=== PATIENT | male | born 1995 | race Caucasian/White ===

== ENCOUNTER 2021-07-04 06:03 | Emergency (ER) | payer SELFPAY ==
[~2021-07-04] VITALS: Ht 170.2 cm; Wt 73.0 kg
[2021-07-04] MEDS ORDERED: KETOROLAC 30MG/ML VIAL IV STA (08:06)
[2021-07-04] MEDS ORDERED: BACITRACIN ZINC OINT UDPKT TOP ONE (08:15)
[2021-07-04] MEDS ORDERED: LIDOCAINE HCL/EPINEPHRINE 1%-EPI 1:100,000 20 ML VIAL INFIL ONE (08:15)
[2021-07-04] MEDS ORDERED: SODIUM CHLORIDE 0.9% 1,000 ML IV ONE (08:15)
[2021-07-04] MEDS ORDERED: TETANUS, DIPHTHERIA, PERTUSSIS VAC/PF 0.5ML (>7YR OLD) IM ONE (08:15)
[2021-07-04 09:47] LABS: HEMATOCRIT. 41.3 % (42.0-52.0); HEMOGLOBIN. 13.8 g/dL (14.0-18.0); MEAN CORPUSCULAR HEMOGLOBIN 28.7 pg (28.0-32.0); MEAN CORPUSCULAR VOLUME 85.9 fL (80.0-94.0); MEAN PLATELET VOLUME 7.3 fl (7.4-10.4); PLATELET 223 x1000/uL (130-400); RED BLOOD CELL COUNT 4.81 mill/uL (4.7-6.1); RED CELL DISTRIBUTION WIDTH 13.6 % (11.6-14.6)
[2021-07-04 09:54] LABS: CHLORIDE 105 mEq/L (98-107)
[2021-07-04 09:57] LABS: ETHANOL BLOOD < 10 mg/dL
[2021-07-04 10:44] VITALS: BP 112/62
[2021-07-04 10:44] LABS: PLATELET ESTIMATE NORMAL
[2021-07-04 11:38] LABS: *AMPHETAMINES SCREEN URINE PRESUMTIVE POSITIVE (NEGATIVE); *BARBITURATES SCREEN URINE NEGATIVE (NEGATIVE); *BENZODIAZEPINES SCREEN URINE NEGATIVE (NEGATIVE); *COCAINE SCREEN URINE NEGATIVE (NEGATIVE); METHADONE URINE SCREEN NEGATIVE (NEGATIVE); OPIATES URINE SCREEN NEGATIVE (NEGATIVE)
[2021-07-04 11:39] LABS: CANNABINOID URINE SCREEN PRESUMTIVE POSITIVE (NEGATIVE); PHENCYCLIDINE URINE SCREEN NEGATIVE (NEGATIVE)
[2021-07-04] MEDS ORDERED: IBUP-2028 MT (11:44)
[2021-07-04] MEDS ORDERED: AMOX-424 MT (11:48)
== END 2021-07-04 12:10 | disposition home or self-care (01) ==
LOC: ER 06:03
DX: S02.40CA Maxillary fracture, right side, initial encounter for closed fracture (principal); V49.49XA Driver injured in collision with other motor vehicles in traffic accident, initial encounter; Y93.89 Activity, other specified; Y92.89 Other specified places as the place of occurrence of the external cause; Y99.8 Other external cause status
CPT/HCPCS: 36415; 70450; 70486; 71045; 72100; 72125; 80053; 80305; 80320; 85025; 90471; 90715; 93005; 96361; 96374; 99285; J1885; J3490; J7030; G0480